=== PATIENT | male | born 1990 | race Two or more races ===

== ENCOUNTER 2019-10-26 14:10 | Emergency (ER) | payer OTHER ==
[~2019-10-26] VITALS: Ht 172.7 cm; Wt 90.0 kg
[2019-10-26 14:31] VITALS: BP 138/89
== END 2019-10-26 16:00 | disposition home or self-care (01) ==
LOC: ED 15:50
DX: S90.32XA Contusion of left foot, initial encounter (principal); G89.11 Acute pain due to trauma; M25.561 Pain in right knee; Y04.0XXA Assault by unarmed brawl or fight, initial encounter; Y92.69 Other specified industrial and construction area as the place of occurrence of the external cause; Y93.89 Activity, other specified; Y99.0 Civilian activity done for income or pay
CPT/HCPCS: 99284